=== PATIENT | female | born 1940 | race Caucasian/White ===

== ENCOUNTER 2018-08-21 12:25 | Inpatient (IN) | payer MEDICARE, BC ==
[2018-08-21] MEDS ORDERED: SODIUM CHLORIDE 0.9% 1,000 ML IV STA (13:00)
--- NOTE | 2018-08-21 13:55 | XR ---
EXAMINATION TYPE: XR chest 2V, XR KUB DATE OF EXAM: 08/21/2018 COMPARISON: None HISTORY: 78 year-old female abdominal pain and constipation FINDINGS: Chest: Median sternotomy wires are present with post-CABG clips. Heart mildly enlarged. Diffuse interstitial and peripheral bronchial densities. No consolidation or pleural effusion. ABDOMEN: No evidence for free intraperitoneal air. Cholecystectomy clips. Scattered colonic and small bowel gas. Scattered air-fluid levels are present. Some small bowel loops in the left upper quadrant are more likely mildly dilated at 3.1 cm. Moderate stool burden. Some air -fluid levels appear to be in the colon. Right hip arthroplasty partially visualized. IMPRESSION: 1. Chest: Cardiomegaly. Diffuse interstitial changes of unknown chronicity, possible bronchitis/asthm a or some underlying interstitial fibrosis. Correlate for any acute respiratory signs/symptoms 2. Abdomen: No evidence for free air. Scattered air-fluid levels are present. Some of these air flui d levels are present in the colon. A small bowel loop in the left upper quadrant is borderline to mil dly dilated at 3.1 cm. Findings are nonspecific, favoring enteritis or ileus. Follow-up can exclude e hong small bowel obstruction.
[2018-08-21 14:05] LABS: Basophils % (A) 1 %; Eosinophils # (A) 0.2 k/uL (0-0.7); Eosinophils % (A) 3 %; HCT 34.5 % (34.0-46.0); HGB 11.3 gm/dL (11.4-16.0); Lymphocytes # (A) 0.7 k/uL (1.0-4.8); Lymphocytes % (A) 12 %; MCH 30.7 pg (25.0-35.0); MCHC 32.9 g/dL (31.0-37.0); MCV 93.4 fL (80.0-100.0); Monocytes # (A) 0.5 k/uL (0-1.0); Monocytes % (A) 8 %; Neutrophils # (A) 4.3 k/uL (1.3-7.7); Neutrophils % (A) 74 %; Platelet Count 183 k/uL (150-450); RBC 3.69 m/uL (3.80-5.40); RDW 14.8 % (11.5-15.5); WBC 5.8 k/uL (3.8-10.6)
[2018-08-21 14:14] LABS: Albumin 4.3 g/dL (3.5-5.0); Calcium 9.6 mg/dL (8.4-10.2); Total Bilirubin 1.5 mg/dL (0.2-1.3); Total Protein 7.7 g/dL (6.3-8.2)
--- NOTE | 2018-08-21 14:18 | ED ---
General Adult HPI <Kali Casillas - Last Filed: 08/21/18 17:37> - General Source: patient, RN notes reviewed, old records reviewed Mode of arrival: ambulatory Limitations: no limitations <Salomon Ford - Last Filed: 08/22/18 00:49> - General Chief complaint: Abdominal Pain Stated complaint: Poss bowel obstruction Time Seen by Provider: 08/21/18 12:45 - History of Present Illness Initial comments: 78-year-old female patient past medical history of CHF, aortic valve replacement , atrial fibrillation, anticoagulated on eliquis presents to ED after not having a bowel movement for 6 days. Patient states that she has been taking Tylenol 3 for back pain which she is managing with her primary care provider. Patient states that she has had difficulties with pain medications and constipation in the past. Patient states that her abdomen feels distended, but denies oswaldo pain. Patient has been a small amount of flatus. Patient denies other complaints. Patient denies shortness of breath, chest pain, nausea vomiting diarrhea, fevers or chills. Systemic: Pt denies fatigue, myalgia, fever/chills, rash. Pt denies weakness, night sweats, weight loss. Neuro: Pt denies headache, visual disturbances, syncope or pre-syncope. HEENT: Pt denies ocular discharge or irritation, otalgia, rhinorrhea, pharyngitis or notable lymphadenopathy. Cardiopulmonary: Pt denies chest pain, SOB, heart palpitations, dyspnea on exertion. Abdominal/GI: Pt denies n/v/d. : Pt denies dysuria, burning w/ urination, frequency/urgency. Denies new onset urinary or bowel incontinence. MSK: Pt denies myalgia, loss of strength or function in extremities. Neuro: Pt denies new onset weakness, paresthesias. (Salomon Ford) - Related Data Home Medications Medication Instructions Recorded Confirmed Acetaminophen-Codeine 300-30mg 1 - 2 tab PO Q6H PRN 08/21/18 08/21/18 [Tylenol w/codeine #3] Apixaban [Eliquis] 5 mg PO BID 08/21/18 08/21/18 Bumetanide [BUMEX] 2 mg PO BID 08/21/18 08/21/18 Docusate [Colace] 100 mg PO DAILY PRN 08/21/18 08/21/18 Ferrous Sulfate [Feosol] 325 mg PO BID 08/21/18 08/21/18 Losartan Potassium 100 mg PO DAILY 08/21/18 08/21/18 Metolazone [Zaroxolyn] 2.5 mg PO DAILY 08/21/18 08/21/18 Pantoprazole Sodium [Protonix] 40 mg PO DAILY 08/21/18 08/21/18 Polyethylene Glycol 3350 [Miralax] 17 gm PO DAILY 08/21/18 08/21/18 Rosuvastatin [Crestor] 20 mg PO HS 08/21/18 08/21/18 traZODone HCL [Desyrel] 50 mg PO HS PRN 08/21/18 08/21/18 Allergies Allergy/AdvReac Type Severity Reaction Status Date / Time No Known Allergies Allergy Verified 08/21/18 13:34 Review of Systems ROS Other: All systems not noted in ROS Statement are negative. <Kali Casillas - Last Filed: 08/21/18 17:37> ROS Other: All systems not noted in ROS Statement are negative. <Salomon Ford - Last Filed: 08/22/18 00:49> ROS Statement: Those systems with pertinent positive or pertinent negative responses have been documented in the HPI. Past Medical History Past Medical History: Hyperlipidemia, Hypertension, Mitral Valve Prolapse (MVP) Additional Past Medical History / Comment(s): tricuspid valve History of Any Multi-Drug Resistant Organisms: None Reported Past Surgical History: Cholecystectomy, Tubal Ligation Additional Past Surgical History / Comment(s): aortic valve replacement Past Psychological History: No Psychological Hx Reported Smoking Status: Former smoker Past Alcohol Use History: Occasional Past Drug Use History: None Reported <Salomon Ford - Last Filed: 08/22/18 00:49> General Exam <Kali Casillas - Last Filed: 08/21/18 17:37> Limitations: no limitations <Salomon Ford - Last Filed: 08/22/18 00:49> - General Exam Comments Initial Comments: Constitutional: NAD, AOX3, Pt has pleasant affect. HEENT: NC/AT, trachea midline, neck supple, no lymphadenopathy. Posterior pharynx non erythematous, without exudates. External ears appear normal, without discharge. Mucous membranes moist. Eyes PERRLA, EOM intact. There is no scleral icterus. No pallor noted. Cardiopulmonary: RRR, no murmurs, rubs or gallops, no JVD noted. Lungs CTAB in anterior and posterior lafleur. No +2 peripheral edema, non pitting, baseline for patient. Abdominal exam: Abdomen soft and non-distended. Abdomen non-tender to palpation in all 4 quadrants. Bowel sounds active in LLQ. No hepatosplenomegaly. No ecchymosis Neuro: CN II-XII grossly intact. No nuchal rigidity. MSK: No posterior calf tenderness bilaterally, homans sign negative bilaterally. Posterior tibialis and radial pulse +2 bilaterally. Sensation intact in upper and lower extremities. Full active ROM in upper and lower extremities, 5/5 stregnth. (Salomon Ford) Course <Kali Casillas - Last Filed: 08/21/18 17:37> <Salomon Ford - Last Filed: 08/22/18 00:49> Vital Signs 08/21/18 08/21/18 08/21/18 12:36 16:19 19:16 Temperature 98 F Pulse Rate 98 107 H 92 Pulse Rate [ Pulse Oximetery ] Respiratory 18 20 18 Rate Blood Pressure 134/84 134/84 119/83 Blood Pressure [Left Arm Sitting] O2 Sat by Pulse 99 99 97 Oximetry 08/21/18 08/21/18 08/21/18 19:50 20:00 20:08 Temperature 98.2 F 98.2 F 97.2 F L Pulse Rate 67 Pulse Rate [ 73 73 Pulse Oximetery ] Respiratory 18 18 15 Rate Blood Pressure 112/70 Blood Pressure 116/68 116/68 [Left Arm Sitting] O2 Sat by Pulse 95 95 97 Oximetry - Reevaluation(s) Reevaluation #1: 08/21/18 17:37 I did review and agree with all PA findings. This includes all diagnostic interpretations and treatment plan. Case was discussed in detail with Dr. regalado, who will admit covering for Dr. Salvador. Orthopedics, Dr. Hill will be placed on consult. Troponin will be rechecked. (Kali Casillas) Medical Decision Making - Lab Data Result diagrams: 08/21/18 12:53 08/21/18 12:53 <Kali Casillas - Last Filed: 08/21/18 17:37> - Lab Data Result diagrams: 08/21/18 12:53 08/21/18 12:53 - EKG Data -: EKG Interpreted by Me (and dr casillas) <Salomon Ford - Last Filed: 08/22/18 00:49> - Medical Decision Making 78-year-old female patient past medical history of CHF, aortic valve replacement , atrial fibrillation, anticoagulated on eliquis presents to ED after not having a bowel movement for 6 days. Patient states that she has been taking Tylenol 3 for back pain which she is managing with her primary care provider. Patient states that she has had difficulties with pain medications and constipation in the past. Patient states that her abdomen feels distended, but denies oswaldo pain. Patient has been a small amount of flatus. Patient denies other complaints. Patient denies shortness of breath, chest pain, nausea vomiting diarrhea, fevers or chills. Vital signs stable, afebrile. Physical exam didn't display acute pathology. CBC noncompressive. Coagulation studies within normal limits. CMP revealed mildly elevated creatinine. CK-MB within normal limits. Plasma test within normal limits. Troponin mildly elevated at 0.041. Amylase lipase within normal limits. UA negative. EKG not concerning for acute ischemia. Chest x-ray revealed diffuse interstitial changes of unknown chronicity. KUB revealed scattered air fluid levels. A small bowel loop left upper quadrant borderline to mildly dilated. Nonspecific findings. CT abdomen and pelvis without contrast revealed large stool burdens suggestive of constipation. She will compression fracture of L5, may be acute or subacute. Mild superior endplate fracture of T12 age-indeterminate. Other nonacute findings. Patient to be admitted for treatment of constipation, trending troponin. On repeat evaluation, patient still not have any chest pain , denies any shortness of breath. Cardiology, orthopedics consulted. Case discussed in depth with Dr. Casillas. (Salomon Ford) - Lab Data Lab Results 08/21/18 08/21/18 08/21/18 Range/Units 12:53 12:53 12:53 WBC 5.8 (3.8-10.6) k/uL RBC 3.69 L (3.80-5.40) m/uL Hgb 11.3 L (11.4-16.0) gm/dL Hct 34.5 (34.0-46.0) % MCV 93.4 (80.0-100.0) fL MCH 30.7 (25.0-35.0) pg MCHC 32.9 (31.0-37.0) g/dL RDW 14.8 (11.5-15.5) % Plt Count 183 (150-450) k/uL Neutrophils % 74 % Lymphocytes % 12 % Monocytes % 8 % Eosinophils % 3 % Basophils % 1 % Neutrophils # 4.3 (1.3-7.7) k/uL Lymphocytes # 0.7 L (1.0-4.8) k/uL Monocytes # 0.5 (0-1.0) k/uL Eosinophils # 0.2 (0-0.7) k/uL Basophils # 0.0 (0-0.2) k/uL PT (9.0-12.0) sec INR (<1.2) APTT (22.0-30.0) sec Sodium 136 L (137-145) mmol/L Potassium 3.7 (3.5-5.1) mmol/L Chloride 91 L (98-107) mmol/L Carbon Dioxide 32 H (22-30) mmol/L Anion Gap 13 mmol/L BUN 39 H (7-17) mg/dL Creatinine 1.23 H (0.52-1.04) mg/dL Est GFR (CKD-EPI)AfAm 48 (>60 ml/min/1.73 sqM) Est GFR (CKD-EPI)NonAf 42 (>60 ml/min/1.73 sqM) Glucose 107 H (74-99) mg/dL Plasma Lactic Acid Lusi (0.7-2.0) mmol/L Calcium 9.6 (8.4-10.2) mg/dL Phosphorus (2.5-4.5) mg/dL Magnesium (1.6-2.3) mg/dL Total Bilirubin 1.5 H (0.2-1.3) mg/dL AST 32 (14-36) U/L ALT 25 (9-52) U/L Alkaline Phosphatase 98 (38-126) U/L Total Creatine Kinase 54 (30-135) U/L CK-MB (CK-2) 0.6 (0.0-2.4) ng/mL CK-MB (CK-2) Rel Index 1.1 Troponin I 0.041 H* (0.000-0.034) ng/mL Total Protein 7.7 (6.3-8.2) g/dL Albumin 4.3 (3.5-5.0) g/dL Amylase 40 (30-110) U/L Lipase 27 (23-300) U/L Urine Color Urine Appearance (Clear) Urine pH (5.0-8.0) Ur Specific [place] (1.001-1.035) Urine Protein (Negative) Urine Glucose (UA) (Negative) Urine Ketones (Negative) Urine Blood (Negative) Urine Nitrite (Negative) Urine Bilirubin (Negative) Urine Urobilinogen (<2.0) mg/dL Ur Leukocyte Esterase (Negative) 08/21/18 08/21/18 08/21/18 Range/Units 12:53 12:53 12:53 WBC (3.8-10.6) k/uL RBC (3.80-5.40) m/uL Hgb (11.4-16.0) gm/dL Hct (34.0-46.0) % MCV (80.0-100.0) fL MCH (25.0-35.0) pg MCHC (31.0-37.0) g/dL RDW (11.5-15.5) % Plt Count (150-450) k/uL Neutrophils % % Lymphocytes % % Monocytes % % Eosinophils % % Basophils % % Neutrophils # (1.3-7.7) k/uL Lymphocytes # (1.0-4.8) k/uL Monocytes # (0-1.0) k/uL Eosinophils # (0-0.7) k/uL Basophils # (0-0.2) k/uL PT 11.6 (9.0-12.0) sec INR 1.1 (<1.2) APTT 27.8 (22.0-30.0) sec Sodium (137-145) mmol/L Potassium (3.5-5.1) mmol/L Chloride (98-107) mmol/L Carbon Dioxide (22-30) mmol/L Anion Gap mmol/L BUN (7-17) mg/dL Creatinine (0.52-1.04) mg/dL Est GFR (CKD-EPI)AfAm (>60 ml/min/1.73 sqM) Est GFR (CKD-EPI)NonAf (>60 ml/min/1.73 sqM) Glucose (74-99) mg/dL Plasma Lactic Acid Luis (0.7-2.0) mmol/L Calcium (8.4-10.2) mg/dL Phosphorus 4.2 (2.5-4.5) mg/dL Magnesium 2.0 (1.6-2.3) mg/dL Total Bilirubin (0.2-1.3) mg/dL AST (14-36) U/L ALT (9-52) U/L Alkaline Phosphatase (38-126) U/L Total Creatine Kinase (30-135) U/L CK-MB (CK-2) (0.0-2.4) ng/mL CK-MB (CK-2) Rel Index Troponin I (0.000-0.034) ng/mL Total Protein (6.3-8.2) g/dL Albumin (3.5-5.0) g/dL Amylase (30-110) U/L Lipase (23-300) U/L Urine Color Light Yellow Urine Appearance Clear (Clear) Urine pH 7.5 (5.0-8.0) Ur Specific [place] 1.005 (1.001-1.035) Urine Protein Negative (Negative) Urine Glucose (UA) Negative (Negative) Urine Ketones Negative (Negative) Urine Blood Negative (Negative) Urine Nitrite Negative (Negative) Urine Bilirubin Negative (Negative) Urine Urobilinogen <2.0 (<2.0) mg/dL Ur Leukocyte Esterase Negative (Negative) 08/21/18 Range/Units 13:24 WBC (3.8-10.6) k/uL RBC (3.80-5.40) m/uL Hgb (11.4-16.0) gm/dL Hct (34.0-46.0) % MCV (80.0-100.0) fL MCH (25.0-35.0) pg MCHC (31.0-37.0) g/dL RDW (11.5-15.5) % Plt Count (150-450) k/uL Neutrophils % % Lymphocytes % % Monocytes % % Eosinophils % % Basophils % % Neutrophils # (1.3-7.7) k/uL Lymphocytes # (1.0-4.8) k/uL Monocytes # (0-1.0) k/uL Eosinophils # (0-0.7) k/uL Basophils # (0-0.2) k/uL PT (9.0-12.0) sec INR (<1.2) APTT (22.0-30.0) sec Sodium (137-145) mmol/L Potassium (3.5-5.1) mmol/L Chloride (98-107) mmol/L Carbon Dioxide (22-30) mmol/L Anion Gap mmol/L BUN (7-17) mg/dL Creatinine (0.52-1.04) mg/dL Est GFR (CKD-EPI)AfAm (>60 ml/min/1.73 sqM) Est GFR (CKD-EPI)NonAf (>60 ml/min/1.73 sqM) Glucose (74-99) mg/dL Plasma Lactic Acid Luis 1.5 (0.7-2.0) mmol/L Calcium (8.4-10.2) mg/dL Phosphorus (2.5-4.5) mg/dL Magnesium (1.6-2.3) mg/dL Total Bilirubin (0.2-1.3) mg/dL AST (14-36) U/L ALT (9-52) U/L Alkaline Phosphatase (38-126) U/L Total Creatine Kinase (30-135) U/L CK-MB (CK-2) (0.0-2.4) ng/mL CK-MB (CK-2) Rel Index Troponin I (0.000-0.034) ng/mL Total Protein (6.3-8.2) g/dL Albumin (3.5-5.0) g/dL Amylase (30-110) U/L Lipase (23-300) U/L Urine Color Urine Appearance (Clear) Urine pH (5.0-8.0) Ur Specific [place] (1.001-1.035) Urine Protein (Negative) Urine Glucose (UA) (Negative) Urine Ketones (Negative) Urine Blood (Negative) Urine Nitrite (Negative) Urine Bilirubin (Negative) Urine Urobilinogen (<2.0) mg/dL Ur Leukocyte Esterase (Negative) - EKG Data EKG Comments: atrial fibrillation with PVC or aberrantly conducted complexes. Right bundle- branch block. Left anterior fascicular block. Ventricular rate 100. QRS 146. QT/QTC 358/461. No significant change from prior EKG in 2018. (Salomon Ford) Disposition <Kali Casillas - Last Filed: 08/21/18 17:37> Is patient prescribed a controlled substance at d/c from ED?: No <Salomon Ford - Last Filed: 08/22/18 00:49> Clinical Impression: Constipation Disposition: ADMITTED IP TO THIS HOSP Condition: Serious
[2018-08-21 14:19] LABS: INR 1.1 (<1.2); Partial Thromboplastin Time 27.8 sec (22.0-30.0); Potassium 3.7 mmol/L (3.5-5.1); Prothrombin Time 11.6 sec (9.0-12.0)
[2018-08-21 14:23] LABS: Appearance,Urine Clear (Clear); Bilirubin,Urine Negative (Negative); Blood,Urine Negative (Negative); Color,Urine Light Yellow; Glucose,Urine (UA) Negative (Negative); Ketones,Urine Negative (Negative); Leukocyte Esterase,Urine Negative (Negative); Nitrite,Urine Negative (Negative); PH, Urine 7.5 (5.0-8.0); Protein,Urine Negative (Negative); Specific Gravity,Urine 1.005 (1.001-1.035); Urobilinogen,Urine <2.0 mg/dL (<2.0)
[2018-08-21] MEDS ORDERED: SODIUM CHLORIDE 0.9% 500 ML 500 ML IV STA (14:46)
[2018-08-21] MEDS ORDERED: ACETAMINOPHEN TAB 325 MG TAB PO STA (15:02)
[2018-08-21 15:03] LABS: Phosphorus 4.2 mg/dL (2.5-4.5)
[2018-08-21 15:37] LABS: Creatine Kinase MB 0.6 ng/mL (0.0-2.4)
[2018-08-21 15:46] LABS: Troponin I 0.041 ng/mL (0.000-0.034)
--- NOTE | 2018-08-21 16:42 | CT ---
EXAMINATION TYPE: CT abdomen pelvis wo con DATE OF EXAM: 08/21/2018 COMPARISON: None HISTORY: 78-year-old female with abdominal and back pain with constipation. CT DLP: 794.2 mGycm. Automated exposure control for dose reduction was used. TECHNIQUE: Contiguous axial scanning of the abdomen and pelvis without IV contrast. Coronal and sagit puja reconstructions performed. FINDINGS: Heart mildly enlarged. Dense mitral annular calcifications. Median sternotomy wires. Mosaic attenuati on in the visualized lower lungs. No pleural effusion. Small hiatal hernia. Noncontrast appearance of the liver, adrenal glands, left kidney, spleen, atrophic pancreas show no g ross abnormality. Right kidney is not rotated with a nonspecific 9 mm hypodense lesion posterior upper pole inadequatel y characterized, probable cyst. Moderate atrophy and scattered calcifications throughout the abdominal aorta and iliac arteries with fusiform dilatation up to 2.3 cm. No oswaldo aneurysm. No dilated small bowel, free fluid, or free air. No mesenteric or retroperitoneal lymphadenopathy. However, there is a circumscribed 1.3 cm nodule along the left side of the omentum, axial image 41 an d sagittal image 95. Intrarenal calcifications. A similar 1.4 cm lesion is present in the left posterior pelvis, axial image 68 and sagittal image 3. Suspect some type of chronic postinflammatory etiology but follow-up can be performed. There is fairly large stool burden. Sigmoid diverticulosis. No pericolonic inflammatory change. Edda l appendix. Bladder shows a focus of intraluminal air nondependently. Prominent artifacts from the patient's righ t hip total arthroplasty limits visualization of the pelvis. No definite pelvic free fluid. Uterus an d ovaries are visualized. No definite pelvic lymphadenopathy. Bones: Right hip total arthroplasty. Degenerative changes of the left hip. There is vertebral alberto anabel collapse of the L5 vertebral body. Some sclerotic changes are present. Retropulsion contributes to at least moderate narrowing of the spinal canal. There is also moderate neuroforaminal stenosis on the right at L4-L5 and L5-S1 and severe on the left. Superior endplate fracture of T12 is age-indeterminate. Anterior wedging of L1 has a chronic appearan ce. IMPRESSION: 1. Large stool burden suggest constipation. Sigmoid diverticulosis. No evidence for acute diverticul itis. 2. Moderate to severe vertebral compression fracture of L5 may be acute to subacute. Retropulsion ca uses at least moderate spinal canal stenosis with moderate to severe neural foraminal stenoses on the left at L4-L5 and L5-S1. Findings may represent an osteoporotic compression fracture. Consider nucle ar medicine whole body bone scan to survey the remainder of the skeleton which may help exclude the p ossibility of a pathologic fracture. 3. Mild superior endplate fracture of T12 age indeterminate, but also could be acute to subacute. Cl inically correlate. No retropulsion at this level. Some accentuation of the spinal kyphosis here. 4. Additional superior endplate fracture with anterior wedging of L1 has a chronic appearance. 5. A couple circumscribed nodules, one in the posterior left pelvis and one along the anterior left omentum measure up to 1.4 cm and have a nonaggressive appearance. A chronic post inflammatory etiolog y is suspected and can be reassessed at 3 months. 6. Focus of air in the bladder. Correlate for any instrumentation or signs of UTI. 7. Mosaic attenuation of the visualized lower lungs suggests air trapping suggests with small airway s disease.
[2018-08-21] MEDS ORDERED: HYDROcodone/APAP 5-325MG 1 EACH TAB PO STA (16:56)
[2018-08-21] MEDS ORDERED: IBUPROFEN 400 MG TAB PO PRN (17:33)
[2018-08-21] MEDS ORDERED: NALOXONE 0.4 MG/ML 1 ML VIAL IV PRN (17:33)
[2018-08-21] MEDS ORDERED: KETOROLAC 30 MG/ML 1 ML VIAL IVP STA (17:47)
[2018-08-21] MEDS: SODIUM CHLORIDE 0.9% 1,000 ML IV SCH (18:05)
[2018-08-21] MEDS ORDERED: traZODone HCL 50 MG TAB PO PRN (20:41)
[2018-08-21] MEDS: FERROUS SULFATE 325 MG TAB PO SCH (21:06)
[2018-08-21] MEDS: BUMETANIDE 1 MG TAB PO SCH (21:06)
[2018-08-21] MEDS: ATORVASTATIN 40 MG TAB PO SCH (21:30)
[2018-08-21] MEDS: APIXABAN 5 MG TAB PO SCH (21:30)
[2018-08-21 22:08] VITALS: BMI 34.4
[2018-08-22] MEDS ORDERED: DOCUSATE 283 MG/5 ML ENEMA RECTAL STA
[2018-08-22] MEDS: MORPHINE SULFATE 4 MG/ML SYRINGE IV PRN ×4 (00:50→20:36)
[2018-08-22] MEDS: FERROUS SULFATE 325 MG TAB PO SCH ×2 (06:05→16:01)
[2018-08-22] MEDS: POLYETHYLENE GLYCOL 3350 17 GM POWD.PACK PO SCH (08:15)
[2018-08-22] MEDS: PANTOPRAZOLE 40 MG TABLET PO SCH (08:15)
[2018-08-22] MEDS: LOSARTAN 50 MG TAB PO SCH (08:15)
[2018-08-22] MEDS: APIXABAN 5 MG TAB PO SCH ×2 (08:15→19:56)
[2018-08-22] MEDS: BUMETANIDE 1 MG TAB PO SCH ×2 (08:15→19:51)
[2018-08-22] MEDS: METOLAZONE 2.5 MG TAB PO SCH (08:28)
--- NOTE | 2018-08-22 09:06 | P.CRDCN ---
History of Present Illness Consult date: 08/22/18 Chief complaint: Constipation History of present illness: after this is a pleasant 78-year-old female patient who was followed with a harpooner out of the town with a past medical history significant for coronary artery disease and status post coronary artery bypass grafting, aortic valve replacement was performed at the same time of the bypass, chronic persistent atrial fibrillation, as well as multiple comorbid conditions, was admitted to the hospital because of constipation. The patient does follow with a harpooner out of the town and details on her own cardiac history are unavailable at this point. The patient presented mainly to the emergency room the cause of constipation. She did not have any bowel movement for the last 8 days. She denies having any abdominal pain but she has been experiencing back pain. She stated that her abdomen was distended. No fever and no chills. No symptoms of chest pain or chest discomfort, no shortness of breath above the baseline, and no feeling of heart racing or fluttering, dizziness or lightheadedness, or syncope. The EKG showed sinus rhythm with atrial fibrillation with nonspecific changes. The cardiac enzymes were checked and came in to be slightly abnormal but above 1 and they are flat across support. The cardiac enzymes does not consist with acute myocardial injury. The chest x-ray do not show any acute finding. The creatinine came in to be slightly abnormal which could be responsible about the abnormalities in the cardiac enzymes. The patient did undergo a computed tomography scan of the abdomen and pelvis and now she is in process of getting workup regarding the constipation. Past Medical History Past Medical History: Hyperlipidemia, Hypertension, Mitral Valve Prolapse (MVP) Additional Past Medical History / Comment(s): tricuspid valve History of Any Multi-Drug Resistant Organisms: None Reported Past Surgical History: Cholecystectomy, Tubal Ligation Additional Past Surgical History / Comment(s): aortic valve replacement Past Anesthesia/Blood Transfusion Reactions: No Reported Reaction Past Psychological History: No Psychological Hx Reported Smoking Status: Former smoker Past Alcohol Use History: Occasional Past Drug Use History: None Reported Medications and Allergies Home Medications Medication Instructions Recorded Confirmed Type Acetaminophen-Codeine 300-30mg 1 - 2 tab PO Q6H PRN 08/21/18 08/21/18 History [Tylenol w/codeine #3] Apixaban [Eliquis] 5 mg PO BID 08/21/18 08/21/18 History Bumetanide [BUMEX] 2 mg PO BID 08/21/18 08/21/18 History Docusate [Colace] 100 mg PO DAILY PRN 08/21/18 08/21/18 History Ferrous Sulfate [Feosol] 325 mg PO BID 08/21/18 08/21/18 History Losartan Potassium 100 mg PO DAILY 08/21/18 08/21/18 History Metolazone [Zaroxolyn] 2.5 mg PO DAILY 08/21/18 08/21/18 History Pantoprazole Sodium [Protonix] 40 mg PO DAILY 08/21/18 08/21/18 History Polyethylene Glycol 3350 [Miralax] 17 gm PO DAILY 08/21/18 08/21/18 History Rosuvastatin [Crestor] 20 mg PO HS 08/21/18 08/21/18 History traZODone HCL [Desyrel] 50 mg PO HS PRN 08/21/18 08/21/18 History Allergies Allergy/AdvReac Type Severity Reaction Status Date / Time No Known Allergies Allergy Verified 08/21/18 13:34 Physical Exam Vitals: Vital Signs Temp Pulse Pulse Resp BP BP Pulse Ox 08/22/18 08:00 97.7 F 90 18 109/68 98 08/22/18 04:00 98.5 F 79 19 121/77 95 08/22/18 00:00 98 F 82 18 124/75 97 08/21/18 20:08 97.2 F L 67 15 112/70 97 08/21/18 20:00 98.2 F 73 18 116/68 95 08/21/18 19:50 98.2 F 73 18 116/68 95 08/21/18 19:16 92 18 119/83 97 08/21/18 16:19 107 H 20 134/84 99 08/21/18 12:36 98 F 98 18 134/84 99 Intake and Output 08/21/18 08/22/18 08/22/18 22:59 06:59 14:59 Other: # Voids 0 1 Weight 98.1 kg - Respiratory Respiratory: bilateral: CTA - Cardiovascular Rhythm: irregularly irregular Heart sounds: normal: S1, S2 Abnormal Heart Sounds: systolic murmur Results 08/21/18 12:53 08/21/18 12:53 Cardiac Enzymes 08/21/18 08/21/18 08/21/18 Range/Units 12:53 12:53 20:41 AST 32 (14-36) U/L CK-MB (CK-2) 0.6 (0.0-2.4) ng/mL Troponin I 0.041 H* 0.043 H* (0.000-0.034) ng/mL 08/22/18 Range/Units 02:43 AST (14-36) U/L CK-MB (CK-2) (0.0-2.4) ng/mL Troponin I 0.040 H* (0.000-0.034) ng/mL Coagulation 08/21/18 Range/Units 12:53 PT 11.6 (9.0-12.0) sec APTT 27.8 (22.0-30.0) sec CBC 08/21/18 Range/Units 12:53 WBC 5.8 (3.8-10.6) k/uL RBC 3.69 L (3.80-5.40) m/uL Hgb 11.3 L (11.4-16.0) gm/dL Hct 34.5 (34.0-46.0) % Plt Count 183 (150-450) k/uL Comprehensive Metabolic Panel 08/21/18 Range/Units 12:53 Sodium 136 L (137-145) mmol/L Potassium 3.7 (3.5-5.1) mmol/L Chloride 91 L (98-107) mmol/L Carbon Dioxide 32 H (22-30) mmol/L BUN 39 H (7-17) mg/dL Creatinine 1.23 H (0.52-1.04) mg/dL Glucose 107 H (74-99) mg/dL Calcium 9.6 (8.4-10.2) mg/dL AST 32 (14-36) U/L ALT 25 (9-52) U/L Alkaline Phosphatase 98 (38-126) U/L Total Protein 7.7 (6.3-8.2) g/dL Albumin 4.3 (3.5-5.0) g/dL Current Medications Generic Name Dose Route Start Last Admin Trade Name Freq PRN Reason Stop Dose Admin Acetaminophen 650 mg 08/21/18 17:33 Tylenol Tab PO Q6HR PRN Mild Pain or Fever > 100.5 Apixaban 5 mg 08/21/18 21:00 08/22/18 08:15 Eliquis PO 5 mg BID MOHINI Administration Atorvastatin Calcium 40 mg 08/21/18 21:00 08/21/18 21:30 Lipitor PO 40 mg HS MOHINI Administration Bumetanide 2 mg 08/21/18 21:00 08/22/18 08:15 Bumex PO 2 mg BID MOHINI Administration Ferrous Sulfate 325 mg 08/21/18 21:00 08/22/18 06:05 Feosol PO Not Given BID-W/MEALS MOHINI Sodium Chloride 1,000 mls @ 20 mls/hr 08/21/18 17:45 08/21/18 18:05 Saline 0.9% IV 20 mls/hr .Q24H MOHINI Administration Ibuprofen 400 mg 08/21/18 17:33 Motrin PO Q6HR PRN Mild Pain or Fever > 100.5 Losartan Potassium 100 mg 08/22/18 09:00 08/22/18 08:15 Cozaar PO 100 mg DAILY MOHINI Administration Metolazone 2.5 mg 08/22/18 09:00 08/22/18 08:28 Zaroxolyn PO 2.5 mg DAILY MOHINI Administration Morphine Sulfate 4 mg 08/21/18 17:33 08/22/18 08:15 Morphine Sulfate (Inj) IV 4 mg Q6HR PRN Administration Severe Pain Naloxone HCl 0.2 mg 08/21/18 17:33 Narcan IV Q2M PRN Opioid Reversal Pantoprazole Sodium 40 mg 08/22/18 09:00 08/22/18 08:15 Protonix PO 40 mg DAILY MOHINI Administration Polyethylene Glycol 17 gm 08/22/18 09:00 08/22/18 08:15 Miralax PO 17 gm DAILY MOHINI Administration Trazodone HCl 50 mg 08/21/18 20:41 Desyrel PO HS PRN Insomnia Intake and Output 08/21/18 08/22/18 08/22/18 22:59 06:59 14:59 Other: # Voids 0 1 Weight 98.1 kg 08/21/18 12:53 08/21/18 12:53 Assessment and Plan Assessment: Assessment #1 severe constipation. The etiology is unknown at this point. The patient is in process of getting workup #2 coronary artery disease and status post coronary artery bypass grafting. The details are unavailable #3 valvular heart disease and status post aortic valve replacement. The details are unavailable as well. #4 chronic persistent atrial fibrillation on oral anticoagulation. The atrial fibrillation is under good control #5 multiple comorbid conditions Plan #1 the mildly abnormal cardiac enzymes are likely related to the chronic renal failure. #2 in the absence of chest pain or discomfort and ischemic ST changes, I would recommend only conservative medical approach #3 the atrial fibrillation seems to be under good control on the current medical regimen #4 we'll obtain an echo to assess the aortic and mitral valve. The patient does have quite significant systolic and diastolic murmur #5 follow-up with the patient Thank you for allowing us participate in her care and we'll continue following up with the patient
--- NOTE | 2018-08-22 09:42 | P.CNOR ---
History of Present Illness - HPI Consult date: 08/22/18 Consult reason: low back pain History of present illness: Patient is seen and examined at bedside. She is a pleasant 78-year-old female who has been having pain in her back since approximately a month ago. She says she had a fall in March was not really having pain at her back then. Last year she had a hip replacement that and had a fall shortly after but did not have any pain at her lower back until a couple months after that fall. She says she started having pain in June which worsened to the course of the month. She denies any prior problems with her back in the past. Denies any prior injury in her back in the past. She denies any numbness tingling or weakness in her lower extremity is. She denies any changes in her lower extremities. She started doing physical therapy and taking pain medications for her back but says this is not helping her. She has had significant constipation with the medications and says that she has not had a bowel movement the past week. Review of Systems As stated in HPI. Denies any changes in bladder control. She has been constipated for appropriate. She denies any changes in her lower extremity. Denies any weakness numbness tingling lower extremity. Denies any prior back pain. She had a fall back in March but does not recall any prior injury or problems their back. Past Medical History Past Medical History: Hyperlipidemia, Hypertension, Mitral Valve Prolapse (MVP) Additional Past Medical History / Comment(s): tricuspid valve History of Any Multi-Drug Resistant Organisms: None Reported Past Surgical History: Cholecystectomy, Tubal Ligation Additional Past Surgical History / Comment(s): aortic valve replacement Past Anesthesia/Blood Transfusion Reactions: No Reported Reaction Past Psychological History: No Psychological Hx Reported Smoking Status: Former smoker Past Alcohol Use History: Occasional Past Drug Use History: None Reported Medications and Allergies Home Medications Medication Instructions Recorded Confirmed Type Acetaminophen-Codeine 300-30mg 1 - 2 tab PO Q6H PRN 08/21/18 08/21/18 History [Tylenol w/codeine #3] Apixaban [Eliquis] 5 mg PO BID 08/21/18 08/21/18 History Bumetanide [BUMEX] 2 mg PO BID 08/21/18 08/21/18 History Docusate [Colace] 100 mg PO DAILY PRN 08/21/18 08/21/18 History Ferrous Sulfate [Feosol] 325 mg PO BID 08/21/18 08/21/18 History Losartan Potassium 100 mg PO DAILY 08/21/18 08/21/18 History Metolazone [Zaroxolyn] 2.5 mg PO DAILY 08/21/18 08/21/18 History Pantoprazole Sodium [Protonix] 40 mg PO DAILY 08/21/18 08/21/18 History Polyethylene Glycol 3350 [Miralax] 17 gm PO DAILY 08/21/18 08/21/18 History Rosuvastatin [Crestor] 20 mg PO HS 08/21/18 08/21/18 History traZODone HCL [Desyrel] 50 mg PO HS PRN 08/21/18 08/21/18 History Gabapentin [Neurontin] 100 mg PO BID #28 cap 08/22/18 Rx Allergies Allergy/AdvReac Type Severity Reaction Status Date / Time No Known Allergies Allergy Verified 08/21/18 13:34 Physical Examination Osteopathic Statement: *. No significant issues noted on an osteopathic structural exam other than those noted in the History and Physical/Consult. - L Spine: dermatomal strength & reflexes bilateral Strength: hip flexion: 5/5 (At her lower back she has some skin changes due to use of a heating pad. There is no open wounds lacerations or abrasions. She is nontender to palpation of the midline. She has some mild paravertebral spasm. She is nontender to percussion. There is no crepitus. Lower extremity is have 5 out of 5 strength the dorsal flexion plantarflexion and EHL. She is able to walk on her toes and heels adequately. She is amatory around the room without any assistance.) Results - Labs Labs: Abnormal Lab Results - Last 24 Hours (Table) 08/21/18 08/21/18 08/21/18 Range/Units 12:53 12:53 12:53 RBC 3.69 L (3.80-5.40) m/uL Hgb 11.3 L (11.4-16.0) gm/dL Lymphocytes # 0.7 L (1.0-4.8) k/uL Sodium 136 L (137-145) mmol/L Chloride 91 L (98-107) mmol/L Carbon Dioxide 32 H (22-30) mmol/L BUN 39 H (7-17) mg/dL Creatinine 1.23 H (0.52-1.04) mg/dL Glucose 107 H (74-99) mg/dL Total Bilirubin 1.5 H (0.2-1.3) mg/dL Troponin I 0.041 H* (0.000-0.034) ng/mL 08/21/18 08/22/18 Range/Units 20:41 02:43 RBC (3.80-5.40) m/uL Hgb (11.4-16.0) gm/dL Lymphocytes # (1.0-4.8) k/uL Sodium (137-145) mmol/L Chloride (98-107) mmol/L Carbon Dioxide (22-30) mmol/L BUN (7-17) mg/dL Creatinine (0.52-1.04) mg/dL Glucose (74-99) mg/dL Total Bilirubin (0.2-1.3) mg/dL Troponin I 0.043 H* 0.040 H* (0.000-0.034) ng/mL H & H 08/21/18 Range/Units 12:53 Hgb 11.3 L (11.4-16.0) gm/dL Hct 34.5 (34.0-46.0) % Coagulation 08/21/18 Range/Units 12:53 INR 1.1 (<1.2) Result Diagrams: 08/21/18 12:53 08/21/18 12:53 - Diagnostic results CT Scan - lumbar: report reviewed (The patient had a computed tomography scan of her chest abdomen and pelvis which I was able to review in regards to her spine. She does have evidence of compression deformity at T12-L1 and L5. The fractures at T12 and L1 appear to be chronic. Fracture at L5 his subacute to chronic. There is some bony retropulsion at L5 and there is evidence of bulging and stenosis L4 5.), image reviewed Assessment and Plan Assessment: Low back pain, subacute over the past month L5 compression fracture likely subacute L4 5 disc degeneration with stenosis T12 and L1 compression fractures likely chronic Constipation No neurologic loss and lower extremity's Plan: Low back pain, subacute over the past month L5 compression fracture likely subacute L4 5 disc degeneration with stenosis T12 and L1 compression fractures likely chronic Constipation No neurologic loss and lower extremity's In regards the patient's lower back she has been having pain and seems to have a subacute compression fracture. She is able to be mobile around the room and she is not having neurologic deficit. I do not think she needs acute surgical intervention. She may have some benefit with LSO bracing to give her some support when she is up out of bed. She did not need to use the brace while she is in bed and may remove the brace during bathing. From an orthopedic spine standpoint is okay for the patient to be discharged when she is stable medically. We can follow her up as an outpatient. She may require further imaging such as MRI to full her evaluation of her structure and if she is not having improvement she will speak candidate for kyphoplasty. For the time being we will continue with conservative management. She is wondering about other medications to be taking that will not cause constipation for her. She could have some benefit with calcitonin nasal spray to help with the fracture pain and she may have some benefit with Neurontin as well. We discussed this and we will go ahead and prescribe this for her.
--- NOTE | 2018-08-22 11:33 | ECHOF ---
Referral Reason:Valvular heart disease MEASUREMENTS -------- HEIGHT: 167.6 cm WEIGHT: 98.0 kg BP: RVIDd: 3.2 cm (< 3.3) IVSd: 1.6 cm (0.6 - 1.1) LVIDd: 3.2 cm (3.9 - 5.3) LVPWd: 1.9 cm (0.6 - 1.1) IVSs: 2.1 cm LVIDs: 1.5 cm LVPWs: 2.0 cm LAESV Index (A-L): 70.75 ml/m Ao Diam: 2.0 cm (2.0 - 3.7) AV Cusp: 1.3 cm (1.5 - 2.6) LA Diam: 5.3 cm (2.7 - 3.8) MV EXCURSION: 13.536 mm (> 18.000) MV EF SLOPE: 33 mm/s (70 - 150) EPSS: 0.6 cm AV maxP.27 mmHg AV meanP.59 mmHg RAP: 15.00 mmHg RVSP: 58.95 mmHg FINDINGS -------- Atrial fibrillation. This was a technically good study. The left ventricular size is normal. There is severe concentric left ventricular hypertrophy. Ove rall left ventricular systolic function is normal with, an EF between 55 - 60 %. The right ventricle is normal in size. LA is severely dilated >40 ml/m2 RA appears enlarged. The aortic valve is trileaflet and appears structurally normal. Peak/mean gradient across the Aorti c Valve is 37.27mmHg / 22.59mmHg. There is mild stenosis of the bioprosthetic aortic valve. The mitral valve leaflets are moderately thickened. Moderate mitral annular calcification present. Severe mitral regurgitation is present. Moderate mitral stenosis. The peak and mean MV gradien ts are 25.95mmHg 10.59mmHg as measured by doppler. Severe tricuspid regurgitation present. There is moderate to severe pulmonary hypertension. The r ight ventricular systolic pressure, as measured by Doppler, is 58.95mmHg. Pulmonic valve appears structurally normal. The aortic root size is normal. The inferior vena cava is moderately dilated. The pericardium is normal. CONCLUSIONS -------- 1. Atrial fibrillation. 2. This was a technically good study. 3. The left ventricular size is normal. 4. There is severe concentric left ventricular hypertrophy. 5. Overall left ventricular systolic function is normal with, an EF between 55 - 60 %. 6. The right ventricle is normal in size. 7. LA is severely dilated >40 ml/m2 8. RA appears enlarged. 9. The aortic valve is trileaflet and appears structurally normal. 10. Peak/mean gradient across the Aortic Valve is 37.27mmHg / 22.59mmHg. 11. The mitral valve leaflets are moderately thickened. 12. Moderate mitral annular calcification present. 13. Severe mitral regurgitation is present. 14. The peak and mean MV gradients are 25.95mmHg 10.59mmHg as measured by doppler. 15. Moderate mitral stenosis. 16. Severe tricuspid regurgitation present. 17. There is moderate to severe pulmonary hypertension. 18. The right ventricular systolic pressure, as measured by Doppler, is 58.95mmHg. 19. Pulmonic valve appears structurally normal. 20. The aortic root size is normal. 21. The inferior vena cava is moderately dilated. 22. The pericardium is normal. [employer]: Imelda Ling RDCS
[2018-08-22] MEDS: ACETAMINOPHEN TAB 325 MG TAB PO PRN (11:58)
--- NOTE | 2018-08-22 18:40 | P.HPIM ---
History of Present Illness H&P Date: 08/22/18 Chief Complaint: Back pain History of present complaint: This is a very pleasant 6-year-old patient of . Chronic stable medical conditions include hypertension, hyperlipidemia, mitral valve prolapse. Patient been having lower back pain for some time. She saw Dr. Salvador. She was prescribed Tylenol 3. We she's been taking. Normally bowel pattern had been regular. Patient noticed that she had become constipated for about a week. Abdomen distended. No nausea vomiting. Back pain is bothering her more. Decided to come to the ER. X-ray workup of the abdomen revealed patient to have vertebral fractures. Patient did have a bowel movement after arriving here. Patient feeling better. No fever or chills. No nausea vomiting. Review of systems: GEN.: Tired EYES: None HEENT: None NECK: None RESPIRATORY: None CARDIOVASCULAR: None GASTROINTESTINAL: As above GENITOURINARY: None MUSCULOSKELETAL: Low back pain] LYMPHATICS: None HEMATOLOGICAL: None PSYCHIATRY: None NEUROLOGICAL: None Past medical history: Hypertension, hyperlipidemia, mitral valve prolapse Social history: Smoke a pack a day for 35 years, stopped 30 years ago. . Alcohol occasionally. Family history: Reviewed, noncontributory to presentation Physical examination: VITAL SIGNS: 98, 98, 18, 134-84, 99% room air GENERAL: [BMI 34.9 Average built, sitting up, and]. EYES: [Pupils equal. Conjunctiva giuliano]l. HEENT: [External appearance of nose and ears normal, oral cavity grossly normal] . NECK: [JVD not raised; masses not palpable]. HEART: [First and second heart sounds are normal; no edema]. LUNGS:[ Respiratory rate normal; clear to auscultation]. ABDOMEN: [Soft, nontender, liver spleen not palpable, no masses palpable]. LYMPHATICS: [No lymph nodes palpable in the axilla and neck]. PSYCH: [Alert and oriented x3; mood and affect giuliano]l. NEUROLOGICAL: [Cranial nerves grossly intact; no facial asymmetry, power and sensation grossly intact]. MUSCULOSKELETAL: Tenderness in the lower lumbar spine, evidence of weight especially in the hands, knees Investigations reviewed in the context of clinical picture KUB-scattered air-fluid levels of present Chest [id number]. Some interstitial changes EKG tracing personally reviewed by me shows right bundle branch block and atrial fibrillation 2-D echo-severe concentric left medical hypertrophy, EF 55-60%, severe mitral regurgitation, severe tricuspid regurgitation, moderate to severe pulmonary hypertension Computed tomography scan abdomen-large stool [place], sigmoid diverticulosis, vertebral compression fracture L5 with some moderate spinal stenosis also fracture at T12 and L1 White count 5.8 hemoglobin 11.3 potassium 3.7 BUN 39 creatinine 1.23 Assessment: -Acute severe constipation from decreased mobility, pain, and ALLERGIES 6 -acute or subacute fracture of T5 L1 and T12 -Right bundle branch block -Persistent atrial fibrillation, chronically anticoagulated -Hypertensive heart disease -Severe mitral and tricuspid regurgitation, nondramatic -Moderate to severe pulmonary hypertension -Sigmoid diverticulosis -Moderate spinal stenosis -Chronic kidney disease stage III probably nephrosclerosis -Troponin leak in the setting of chronic kidney disease. Patient has no cardiac symptoms. Plan: Dr. villarreal from orthopedic spine was consulted. Who ordered a brace. Patient oriented a bowel movement. Patient will be added Metamucil. Advised the patient to increase her activity. Home medications resumed. Patient getting IV fluids. Care was discussed with the patient and at the bedside. Encouraged to be out of bed. - Past Medical History Past Medical History: Hyperlipidemia, Hypertension, Mitral Valve Prolapse (MVP) Additional Past Medical History / Comment(s): tricuspid valve History of Any Multi-Drug Resistant Organisms: None Reported Past Surgical History: Cholecystectomy, Tubal Ligation Additional Past Surgical History / Comment(s): aortic valve replacement Past Anesthesia/Blood Transfusion Reactions: No Reported Reaction Past Psychological History: No Psychological Hx Reported Smoking Status: Former smoker Past Alcohol Use History: Occasional Past Drug Use History: None Reported Medications and Allergies Home Medications Medication Instructions Recorded Confirmed Type Acetaminophen-Codeine 300-30mg 1 - 2 tab PO Q6H PRN 08/21/18 08/21/18 History [Tylenol w/codeine #3] Apixaban [Eliquis] 5 mg PO BID 08/21/18 08/21/18 History Bumetanide [BUMEX] 2 mg PO BID 08/21/18 08/21/18 History Docusate [Colace] 100 mg PO DAILY PRN 08/21/18 08/21/18 History Ferrous Sulfate [Feosol] 325 mg PO BID 08/21/18 08/21/18 History Losartan Potassium 100 mg PO DAILY 08/21/18 08/21/18 History Metolazone [Zaroxolyn] 2.5 mg PO DAILY 08/21/18 08/21/18 History Pantoprazole Sodium [Protonix] 40 mg PO DAILY 08/21/18 08/21/18 History Polyethylene Glycol 3350 [Miralax] 17 gm PO DAILY 08/21/18 08/21/18 History Rosuvastatin [Crestor] 20 mg PO HS 08/21/18 08/21/18 History traZODone HCL [Desyrel] 50 mg PO HS PRN 08/21/18 08/21/18 History Calcitonin Nasal [Fortical 1 spray NASAL DAILY 21 Days #1 ml 08/22/18 Rx (Miacalcin)] Gabapentin [Neurontin] 100 mg PO BID #28 cap 08/22/18 Rx Allergies Allergy/AdvReac Type Severity Reaction Status Date / Time No Known Allergies Allergy Verified 08/21/18 13:34 Physical Exam Vitals: Vital Signs Temp Pulse Pulse Resp BP BP Pulse Ox 08/22/18 16:00 96.4 F L 99 16 130/64 98 08/22/18 15:47 20 08/22/18 12:00 97.9 F 100 20 147/62 97 08/22/18 08:00 97.7 F 90 18 109/68 98 08/22/18 04:00 98.5 F 79 19 121/77 95 08/22/18 00:00 98 F 82 18 124/75 97 08/21/18 20:08 97.2 F L 67 15 112/70 97 08/21/18 20:00 98.2 F 73 18 116/68 95 08/21/18 19:50 98.2 F 73 18 116/68 95 08/21/18 19:16 92 18 119/83 97 Intake and Output 08/22/18 08/22/18 08/22/18 06:59 14:59 22:59 Intake Total 180 Balance 180 Intake: Oral 180 Other: # Voids 1 3 # Bowel Movements 1 1 Weight 98.1 kg Results CBC & Chem 7: 08/21/18 12:53 08/21/18 12:53 Labs: Abnormal Lab Results - Last 24 Hours (Table) 08/21/18 08/22/18 08/22/18 Range/Units 20:41 02:43 08:37 Troponin I 0.043 H* 0.040 H* 0.044 H* (0.000-0.034) ng/mL Thrombosis Risk Factor Assmnt - Choose All That Apply Each Factor Represents 1 point: Obesity (BMI >25), Swollen legs (current) Each Risk Factor Represents 3 Points: Age 75 years or older Other congenital or acquired thrombophilia - If yes, enter type in comment: No Thrombosis Risk Factor Assessment Total Risk Factor Score: 5 Thrombosis Risk Factor Assessment Level: High Risk
[2018-08-22] MEDS: SODIUM CHLORIDE 0.9% 1,000 ML IV SCH (19:18)
[2018-08-22] MEDS: ATORVASTATIN 40 MG TAB PO SCH (19:56)
[2018-08-22] MEDS: GABAPENTIN 100 MG CAP PO SCH (20:36)
[2018-08-23] MEDS: MORPHINE SULFATE 4 MG/ML SYRINGE IV PRN (01:48)
[2018-08-23] MEDS: FERROUS SULFATE 325 MG TAB PO SCH (06:16)
[2018-08-23] MEDS ORDERED: CALCITONIN 200 USP/1 NASAL SPRAY 3.7ML BTL NASAL SCH (09:00)
[2018-08-23] MEDS: GABAPENTIN 100 MG CAP PO SCH (09:17)
[2018-08-23] MEDS: PANTOPRAZOLE 40 MG TABLET PO SCH (09:17)
[2018-08-23] MEDS: BUMETANIDE 1 MG TAB PO SCH (09:17)
[2018-08-23] MEDS: LOSARTAN 50 MG TAB PO SCH (09:17)
[2018-08-23] MEDS: APIXABAN 5 MG TAB PO SCH (09:18)
[2018-08-23] MEDS: POLYETHYLENE GLYCOL 3350 17 GM POWD.PACK PO SCH (09:18)
--- NOTE | 2018-08-23 09:22 | P.PN ---
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 The patient does follow with a inventory control supervisor out of the town and details on her own cardiac history are unavailable at this point. The patient presented mainly to the emergency room the cause of constipation. She did not have any bowel movement for the last 8 days. She denies having any abdominal pain but she has been experiencing back pain. She stated that her abdomen was distended. No fever and no chills. No symptoms of chest pain or chest discomfort, no shortness of breath above the baseline, and no feeling of heart racing or fluttering, dizziness or lightheadedness, or syncope. The EKG showed sinus rhythm with atrial fibrillation with nonspecific changes. The cardiac enzymes were checked and came in to be slightly abnormal but above 1 and they are flat across support. The cardiac enzymes does not consist with acute myocardial injury. The chest x-ray do not show any acute finding. The creatinine came in to be slightly abnormal which could be responsible about the abnormalities in the cardiac enzymes. On follow-up with the patient today, 08/23/2018, she remains asymptomatic from a cardiovascular standpoint of view. She did have a bowel movement yesterday. The echocardiogram revealed normal LV function with severe MR, severe TR, and severe pulmonary hypertension. From the cardiovascular standpoint overview, she possibly can be discharged home. Objective - Vital Signs Vital signs: Vital Signs Temp 98.0 F 08/23/18 04:00 Pulse 86 08/23/18 04:00 Resp 18 08/23/18 04:00 BP 116/68 08/23/18 04:00 Pulse Ox 99 08/23/18 04:00 Intake & Output 08/22/18 08/23/18 08/23/18 18:59 06:59 18:59 Intake Total 180 160 Output Total 0 Balance 180 160 0 Weight 97.7 kg Intake: Intake, IV Titration 160 Amount Sodium Chloride 0.9% 1, 160 000 ml @ 20 mls/hr IV . Q24H [facility] Rx#:[id number] Oral 180 Output: Urine 0 Other: Voiding Method Toilet # Voids 3 1 # Bowel Movements 1 - Constitutional General appearance: Present: no acute distress - Respiratory Respiratory: bilateral: CTA - Cardiovascular Rhythm: irregularly irregular Heart sounds: normal: S1, S2 Abnormal Heart Sounds: Present: systolic murmur - Labs CBC & Chem 7: 08/21/18 12:53 08/21/18 12:53 Labs: Abnormal Lab Results - Last 24 Hours (Table) 08/22/18 Range/Units 08:37 Troponin I 0.044 H* (0.000-0.034) ng/mL Assessment and Plan Assessment: Assessment #1 severe constipation. The etiology is unknown at this point. The patient is in process of getting workup #2 coronary artery disease and status post coronary artery bypass grafting. The details are unavailable #3 valvular heart disease and status post aortic valve replacement. The details are unavailable as well. #4 chronic persistent atrial fibrillation on oral anticoagulation. The atrial fibrillation is under good control #5 multiple comorbid conditions Plan #1 the mildly abnormal cardiac enzymes are likely related to the chronic renal failure. #2 in the absence of chest pain or discomfort and ischemic ST changes, I would recommend only conservative medical approach #3 the atrial fibrillation seems to be under good control on the current medical regimen #4 echocardiogram reviewed and revealed normal LV function with severe MR, severe TR, severe pulmonary hypertension #5 from the cardiac standpoint, she can be discharged home.
[2018-08-23] MEDS: METOLAZONE 2.5 MG TAB PO SCH (09:24)
[2018-08-23] MEDS: ACETAMINOPHEN TAB 325 MG TAB PO PRN ×2 (09:25→14:53)
[2018-08-23 09:36] VITALS: TEMP 97.6
[2018-08-23 12:02] VITALS: BP 127/73; PULSE 102; RESP 17
--- NOTE | 2018-08-24 08:08 | DS ---
DISCHARGE SUMMARY DATE OF ADMISSION: August 21, 2018. DATE OF DISCHARGE: August 23, 2018. FINAL DIAGNOSES: 1. Acute severe constipation from decreased mobility, pain. 2. Acute on subacute fracture of T5, L1 and T12, lumbar vertebra. 3. Right bundle branch block. 4. Persistent atrial fibrillation chronically anticoagulated. 5. Hypertensive heart disease. 6. Severe mitral and tricuspid regurgitation, nonrheumatic. 7. Moderate to severe secondary pulmonary hypertension. 8. Sigmoid diverticulosis asymptomatic. 9. Moderate spinal stenosis. 10.Chronic kidney disease stage 3 probably from nephrosclerosis. 11.Troponin leak in the setting of chronic kidney disease. Patient has no cardiac symptoms. HOSPITAL COURSE: This patient presented with no bowel movement for 1 week. Also has been having lower back pain, coming on for some time. The patient was severely constipated, did start having good bowel movements after she got here. The patient did have abdomen and pelvis CT scan that did show thoracolumbar fracture as above. The patient is seen by Dr. Hill from Orthopedics. No further intervention. Did prescribe the patient Neurontin. The patient also did have a good bowel movements. The patient was given a back brace. Doing much better today, wearing the brace. is present. Questions were answered. PHYSICAL EXAMINATION: VITAL SIGNS: Temperature 97.6, pulse 98, respiratory rate 18, blood pressure 127/73, pulse ox 94 percent on room air. Lungs fair entry. CARDIOVASCULAR: 1st and 2nd sounds normal. Brace in place. INVESTIGATIONS: White count 5.8, hemoglobin 11.3, potassium 3.7, BUN 39, creatinine 1.23. 2D echocardiogram showed EF of 55-60 percent, severe mitral regurgitation, moderate mitral annular calcification, severe tricuspid regurgitation, moderate to severe pulmonary hypertension. DISCHARGE MEDICATIONS: 1. Tylenol 3 1-2 tablets q.6h p.r.n. 2. Eliquis 5 mg b.i.d. 3. Bumex 2 mg p.o. b.i.d. 4. Iron 325 p.o. b.i.d. 5. Losartan 100 mg p.o. daily. 6. Zaroxolyn 2.5 mg p.o. daily. 7. Protonix 40 mg p.o. daily. 8. MiraLAX 17 grams p.o. daily. 9. Crestor 20 mg p.o. q.h.s. 10.Trazodone 50 mg q.h.s. p.r.n. 11.Calcitonin 1 spray nasal cannula over 21 days. 12.Neurontin 100 mg b.i.d. 13.Metamucil 6 grams p.o. b.i.d. FOLLOWUP: With Cardiology in 1 week. Follow up with Dr. Hill on 09/06/2018. Follow up with Shanice Salvador in 3 days. LSO brace to be worn when patient out of bed except for bathing. May take the brace off when in bed or chair with good back support. Copy to Dr. Shanice Salvador. MMODL / IJN: [id number] /
== END 2018-08-23 15:45 | disposition home or self-care (01) | DRG 392 ==
LOC: EC 12:25 → 3SCARD 17:38 → OBSVTOIN 08-23 14:41
PROVIDERS: ADMIT Hospitalist; ATTEND Hospitalist
DX: K59.00 Constipation, unspecified (principal); S22.059A Unspecified fracture of T5-T6 vertebra, initial encounter for closed fracture; I13.0 Hypertensive heart and chronic kidney disease with heart failure and stage 1 through stage 4 chronic kidney disease, or unspecified chronic kidney disease; I48.1 Persistent atrial fibrillation; S22.089A Unspecified fracture of T11-T12 vertebra, initial encounter for closed fracture; E78.5 Hyperlipidemia, unspecified; I08.1 Rheumatic disorders of both mitral and tricuspid valves; I25.10 Atherosclerotic heart disease of native coronary artery without angina pectoris; I27.29 Other secondary pulmonary hypertension; I45.10 Unspecified right bundle-branch block; I48.2 Chronic atrial fibrillation; I50.9 Heart failure, unspecified; K57.30 Diverticulosis of large intestine without perforation or abscess without bleeding; M48.061 Spinal stenosis, lumbar region without neurogenic claudication; M51.36 Other intervertebral disc degeneration, lumbar region; N18.3 Chronic kidney disease, stage 3 (moderate); W19.XXXA Unspecified fall, initial encounter; Z79.01 Long term (current) use of anticoagulants; Z79.899 Other long term (current) drug therapy; Z87.891 Personal history of nicotine dependence; Z91.81 History of falling; Z95.1 Presence of aortocoronary bypass graft; Z95.2 Presence of prosthetic heart valve; Z96.649 Presence of unspecified artificial hip joint; Z79.891 Long term (current) use of opiate analgesic; Z90.49 Acquired absence of other specified parts of digestive tract
CPT/HCPCS: 36415; 71046; 74018; 74176; 80053; 81003; 82150; 82550; 82553; 83605; 83690; 83735; 84100; 84484; 85025; 85610; 85730; 93005; 93306; 96361; 96374; 99285

== ENCOUNTER 2018-09-04 11:50 | Emergency (ER) | payer MEDICARE, BC ==
[2018-09-04 11:58] VITALS: TEMP 97
[2018-09-04] MEDS ORDERED: LIDOCAINE 1%-EPI 1:100,000 20 ML VIAL SQ ONE (12:48)
--- NOTE | 2018-09-04 12:48 | ED ---
General Adult HPI <Theodore Godwin - Last Filed: 09/04/18 14:38> - General Source: EMS, RN notes reviewed Mode of arrival: EMS Limitations: no limitations <Minoo Jonas - Last Filed: 09/04/18 16:25> - General Chief complaint: Extremity Problem,Nontraumatic Stated complaint: ruptured varicose vein Time Seen by Provider: 09/04/18 12:22 - History of Present Illness Initial comments: Patient is an 78-year-old female who arrived by EMS with history of varicose veins status post laser treatment 5 or 6 years ago and A fib who presents the emergency department with complaint of right lower extremity bleeding from the calf area that started about 10:30 AM today while she was in the shower. Denies shaving or injury to the area. She reports taking Eliquis. Her tied a belt around her leg to try to stop the bleeding. Patient is not sure when her last tetanus vaccination was done, but states that it has been a long time. Patient denies any recent fever, chills, shortness of breath, chest pain, back pain, abdominal pain, nausea or vomiting, numbness or tingling, headaches or visual changes, or any other complaints. (Minoo Jonas) - Related Data Home Medications Medication Instructions Recorded Confirmed Apixaban [Eliquis] 5 mg PO BID 08/21/18 09/04/18 Bumetanide [BUMEX] 2 mg PO BID 08/21/18 09/04/18 Losartan Potassium 100 mg PO DAILY 08/21/18 09/04/18 Metolazone [Zaroxolyn] 2.5 mg PO DAILY 08/21/18 09/04/18 Pantoprazole Sodium [Protonix] 40 mg PO DAILY 08/21/18 09/04/18 Polyethylene Glycol 3350 [Miralax] 17 gm PO DAILY 08/21/18 09/04/18 Rosuvastatin [Crestor] 20 mg PO HS 08/21/18 09/04/18 traZODone HCL [Desyrel] 50 mg PO HS PRN 08/21/18 09/04/18 traMADol HCL [Ultram] 50 mg PO Q6HR PRN 09/04/18 09/04/18 Previous Rx's Medication Instructions Recorded Calcitonin Nasal [Fortical 1 spray NASAL DAILY 21 Days #1 ml 08/22/18 (Miacalcin)] Gabapentin [Neurontin] 100 mg PO BID #28 cap 08/22/18 Psyllium Husk 100% [Metamucil 6 gm PO BID #60 packet 08/23/18 Packet] Allergies Allergy/AdvReac Type Severity Reaction Status Date / Time No Known Allergies Allergy Verified 09/04/18 12:20 Review of Systems ROS Other: All systems not noted in ROS Statement are negative. <Theodore Godwin - Last Filed: 09/04/18 14:38> ROS Other: All systems not noted in ROS Statement are negative. <Minoo Jonas - Last Filed: 09/04/18 16:25> ROS Statement: Those systems with pertinent positive or pertinent negative responses have been documented in the HPI. Past Medical History Past Medical History: Hyperlipidemia, Hypertension, Mitral Valve Prolapse (MVP) Additional Past Medical History / Comment(s): tricuspid valve History of Any Multi-Drug Resistant Organisms: None Reported Past Surgical History: Cholecystectomy, Tubal Ligation Additional Past Surgical History / Comment(s): aortic valve replacement Past Anesthesia/Blood Transfusion Reactions: No Reported Reaction Past Psychological History: No Psychological Hx Reported Smoking Status: Former smoker Past Alcohol Use History: Occasional Past Drug Use History: None Reported <Minoo Jonas - Last Filed: 09/04/18 16:25> General Exam Limitations: no limitations General appearance: alert, in no apparent distress Head exam: Present: atraumatic, normocephalic Eye exam: Present: normal appearance Respiratory exam: Present: normal lung sounds bilaterally. Absent: wheezes, rales, rhonchi Cardiovascular Exam: Present: irregular rhythm (Patient has A fib.) Extremities exam: Present: normal capillary refill, other (2 mm hole with venous bleeding. Right DP pulse palpable and strong.) Neurological exam: Present: alert, oriented X3, normal gait <Minoo Jonas - Last Filed: 09/04/18 16:25> Course <Theodore Godwin - Last Filed: 09/04/18 14:38> <Minoo Jonas E - Last Filed: 09/04/18 16:25> Vital Signs 09/04/18 09/04/18 09/04/18 11:57 13:01 14:46 Temperature 97.0 F L Pulse Rate 99 106 H 90 Respiratory 16 18 16 Rate Blood Pressure 108/64 109/87 96/61 O2 Sat by Pulse 94 L 100 98 Oximetry 09/04/18 09/04/18 16:02 16:13 Temperature Pulse Rate 103 H 91 Respiratory 16 18 Rate Blood Pressure 94/53 94/56 O2 Sat by Pulse 97 98 Oximetry - Reevaluation(s) Reevaluation #1: 09/04/18 14:38 PA supervision: I proceeded [id number] evaluation the patient he does demonstrate evidence of a varicose vein that has ruptured with active bleeding. Patient did have a [id number] placed with improvement in the bleeding I did recommend Gelfoam in addition. I do agree with the assessment and plan patient is in agreement with this. (Theodore Godwin) Procedures <Theodore Godwin - Last Filed: 09/04/18 14:38> - Laceration Laceration #1 Consent Obtained: verbal consent Indication: other (Ruptured varicose vein.) Site: lower extremity Description: clean Depth: simple, single layer Sedation/Analgesia: none Anesthetic Used: lidocaine 1%, with epi Anesthesia Technique: local infiltration Amount (mls): 2 Type of Sutures: nylon Size of Sutures: 4-0 Number of Sutures: 2 Technique: other ([id number]) Patient Tolerated Procedure: well, no complications <Minoo Jonas - Last Filed: 09/04/18 16:25> - Laceration Laceration #1 Additional Comments: Bleeding stopped. Patient neurovascularly intact. (Minoo Jonas) Medical Decision Making - Lab Data Result diagrams: 09/04/18 12:22 09/04/18 12:22 <Theodore Godwin - Last Filed: 09/04/18 14:38> - Lab Data Result diagrams: 09/04/18 12:22 09/04/18 12:22 <Minoo Jonas - Last Filed: 09/04/18 16:25> - Medical Decision Making Bleeding stopped with sutures. Gelfoam and dressing applied as well. Patient ambulating to the restroom without difficulty; denies dizziness. I encouraged increased fluid intake. Tdap updated here. Case discussed in detail with attending physician Dr. Godwin. (Minoo Jonas) - Lab Data Lab Results 09/04/18 09/04/18 09/04/18 Range/Units 12:22 12:22 12:22 WBC 5.9 (3.8-10.6) k/uL RBC 3.35 L (3.80-5.40) m/uL Hgb 10.4 L (11.4-16.0) gm/dL Hct 31.7 L (34.0-46.0) % MCV 94.6 (80.0-100.0) fL MCH 31.1 (25.0-35.0) pg MCHC 32.9 (31.0-37.0) g/dL RDW 15.0 (11.5-15.5) % Plt Count 162 (150-450) k/uL Neutrophils % 74 % Lymphocytes % 11 % Monocytes % 9 % Eosinophils % 3 % Basophils % 1 % Neutrophils # 4.3 (1.3-7.7) k/uL Lymphocytes # 0.7 L (1.0-4.8) k/uL Monocytes # 0.5 (0-1.0) k/uL Eosinophils # 0.2 (0-0.7) k/uL Basophils # 0.1 (0-0.2) k/uL PT 11.9 (9.0-12.0) sec INR 1.1 (<1.2) APTT 26.4 (22.0-30.0) sec Sodium 137 (137-145) mmol/L Potassium 4.1 (3.5-5.1) mmol/L Chloride 94 L (98-107) mmol/L Carbon Dioxide 34 H (22-30) mmol/L Anion Gap 9 mmol/L BUN 44 H (7-17) mg/dL Creatinine 1.56 H (0.52-1.04) mg/dL Est GFR (CKD-EPI)AfAm 36 (>60 ml/min/1.73 sqM) Est GFR (CKD-EPI)NonAf 31 (>60 ml/min/1.73 sqM) Glucose 111 H (74-99) mg/dL Calcium 9.4 (8.4-10.2) mg/dL Total Bilirubin 1.1 (0.2-1.3) mg/dL AST 23 (14-36) U/L ALT 24 (9-52) U/L Alkaline Phosphatase 95 (38-126) U/L Total Protein 6.7 (6.3-8.2) g/dL Albumin 3.7 (3.5-5.0) g/dL Disposition <Theodore Godwin - Last Filed: 09/04/18 14:38> Is patient prescribed a controlled substance at d/c from ED?: No <Minoo Jonas - Last Filed: 09/04/18 16:25> Clinical Impression: Ruptured varicose vein Disposition: HOME SELF-CARE Condition: Good Instructions (If sedation given, give patient instructions): Care For Your Stitches (ED) Additional Instructions: Follow-up with your PCP in 1 to 2 days. Return to the emergency department or follow-up with your PCP in 10 days for suture removal. Return to the emergency department if you begin to bleed again. Referrals: Shanice Salvador DO [Primary Care Provider] - 1-2 days
[2018-09-04 13:19] LABS: Basophils # (A) 0.1 k/uL (0-0.2); Basophils % (A) 1 %; Eosinophils # (A) 0.2 k/uL (0-0.7); Eosinophils % (A) 3 %; HCT 31.7 % (34.0-46.0); HGB 10.4 gm/dL (11.4-16.0); Lymphocytes # (A) 0.7 k/uL (1.0-4.8); Lymphocytes % (A) 11 %; MCH 31.1 pg (25.0-35.0); MCHC 32.9 g/dL (31.0-37.0); MCV 94.6 fL (80.0-100.0); Mean Platelet Volume 7.4; Monocytes # (A) 0.5 k/uL (0-1.0); Monocytes % (A) 9 %; Neutrophils # (A) 4.3 k/uL (1.3-7.7); Neutrophils % (A) 74 %; Platelet Count 162 k/uL (150-450); RBC 3.35 m/uL (3.80-5.40); WBC 5.9 k/uL (3.8-10.6)
[2018-09-04 13:28] LABS: INR 1.1 (<1.2); Partial Thromboplastin Time 26.4 sec (22.0-30.0); Prothrombin Time 11.9 sec (9.0-12.0)
[2018-09-04 13:32] LABS: Albumin 3.7 g/dL (3.5-5.0); Calcium 9.4 mg/dL (8.4-10.2); Potassium 4.1 mmol/L (3.5-5.1); Total Bilirubin 1.1 mg/dL (0.2-1.3); Total Protein 6.7 g/dL (6.3-8.2)
[2018-09-04] MEDS ORDERED: GELATIN SPONGE,ABSORB (LARGE) 1 EACH SPONGE TOPICAL STA (14:19)
[2018-09-04] MEDS ORDERED: DIPH,PERTUS(ACELL)TETVAC-LF 0.5 ML VIAL IM ONE (14:21)
[2018-09-04 16:14] VITALS: BP 94/56; PULSE 91; RESP 18
== END 2018-09-04 16:22 | disposition home or self-care (01) ==
LOC: EC 11:50
DX: I83.91 Asymptomatic varicose veins of right lower extremity (principal); Z23 Encounter for immunization; E78.5 Hyperlipidemia, unspecified; I10 Essential (primary) hypertension; I48.91 Unspecified atrial fibrillation; Z79.01 Long term (current) use of anticoagulants; Z79.899 Other long term (current) drug therapy; Z87.891 Personal history of nicotine dependence; Z95.2 Presence of prosthetic heart valve
CPT/HCPCS: 12001; 36415; 80053; 85025; 85610; 85730; 90471; 90715; 99283

== ENCOUNTER 2018-09-16 13:34 | Emergency (ER) | payer MEDICARE, BC ==
[2018-09-16 13:49] VITALS: BP 118/76; PULSE 108; RESP 18; TEMP 98
[2018-09-16] MEDS ORDERED: OXYMETAZOLINE 0.05% NASL SPRAY 1 SPRAY BOTTLE NASAL STA (14:17)
--- NOTE | 2018-09-16 14:51 | ED ---
ENT HPI - General Chief complaint: ENT Stated complaint: bloody nose Time Seen by Provider: 09/16/18 14:04 Source: patient Mode of arrival: ambulatory Limitations: no limitations - History of Present Illness Initial comments: 6-year-old female past medical history of atrial fibrillation on eliquis presented today for chief complaint of recurrent nosebleeds. Patient states that about 4-5 days ago she was seen at [facility] for nosebleed, she states she had a clamp applied and was discharged home. She denies being administered any medications any cauterization or packing. Patient states that yesterday morning she experienced a nosebleed for 20 minutes, she states she applied pressure and the bleeding subsided. She states the bleeding is coming from the left nares. Patient states that today 11 AM she began experiencing nosebleed, she is unable to control the bleed and presented to the emergency department. Upon arrival to emergency department today patient has clamp in place. Patient remaining review of systems negative, patient denies any recent fever, chills, shortness of breath, chest pain, back pain, abdominal pain, nausea or vomiting, numbness or tingling, dysuria or hematuria, constipation or diarrhea, headaches or visual changes, or any other complaints. Upon arrival patient appears well no signs distress. Vital signs reveal elevation of heart rate initally, palpated HR of 88BPM on history taking. - Related Data Home Medications Medication Instructions Recorded Confirmed Apixaban [Eliquis] 5 mg PO BID 08/21/18 09/04/18 Bumetanide [BUMEX] 2 mg PO BID 08/21/18 09/04/18 Losartan Potassium 100 mg PO DAILY 08/21/18 09/04/18 Metolazone [Zaroxolyn] 2.5 mg PO DAILY 08/21/18 09/04/18 Pantoprazole Sodium [Protonix] 40 mg PO DAILY 08/21/18 09/04/18 Polyethylene Glycol 3350 [Miralax] 17 gm PO DAILY 08/21/18 09/04/18 Rosuvastatin [Crestor] 20 mg PO HS 08/21/18 09/04/18 traZODone HCL [Desyrel] 50 mg PO HS PRN 08/21/18 09/04/18 traMADol HCL [Ultram] 50 mg PO Q6HR PRN 09/04/18 09/04/18 Previous Rx's Medication Instructions Recorded Calcitonin Nasal [Fortical 1 spray NASAL DAILY 21 Days #1 ml 08/22/18 (Miacalcin)] Gabapentin [Neurontin] 100 mg PO BID #28 cap 08/22/18 Psyllium Husk 100% [Metamucil 6 gm PO BID #60 packet 08/23/18 Packet] Allergies Allergy/AdvReac Type Severity Reaction Status Date / Time No Known Allergies Allergy Verified 09/16/18 13:49 Review of Systems ROS Statement: Those systems with pertinent positive or pertinent negative responses have been documented in the HPI. ROS Other: All systems not noted in ROS Statement are negative. Past Medical History Past Medical History: Hyperlipidemia, Hypertension, Mitral Valve Prolapse (MVP) Additional Past Medical History / Comment(s): tricuspid valve History of Any Multi-Drug Resistant Organisms: None Reported Past Surgical History: Cholecystectomy, Tubal Ligation Additional Past Surgical History / Comment(s): aortic valve replacement Past Anesthesia/Blood Transfusion Reactions: No Reported Reaction Past Psychological History: No Psychological Hx Reported Smoking Status: Former smoker Past Alcohol Use History: Occasional Past Drug Use History: None Reported General Exam - General Exam Comments Initial Comments: General: The patient is awake and alert, in no distress, and does not appear acutely ill. Eye: Pupils are equal, round and reactive to light, extra-ocular movements are intact. No nystagmus. There is normal conjunctiva bilaterally. No signs of icterus. No pallor of the lids of the eyes. Ears, nose, mouth and throat: There are moist mucous membranes and no oral lesions. Upon inspection of the nares bilaterally there is crusting of blood. Patient had cramp in place, after removal of clamp there was small amount of bleeding., I was unable to identify source at this time after having patient blow nose. Will reassess. Dried blood in oropharnyx, no heavy bleeding noted. Neck: The neck is supple, there is no tenderness or JVD. Cardiovascular: There is a regular rate and irregular rhythm. No murmur, rub or gallop is appreciated. Respiratory: Lungs are clear to auscultation, respirations are non-labored, breath sounds are equal. No wheezes, stridor, rales, or rhonchi. Musculoskeletal: Normal ROM, no tenderness. Strength 5/5. Sensation intact. Pulses equal bilaterally 2+. Neurological: A&O x 3. CN II-XII intact, There are no obvious motor or sensory deficits. Coordination appears grossly intact. Speech is normal. Skin: Skin is warm and dry and no rashes or lesions are noted. Psychiatric: Cooperative, appropriate mood & affect, normal judgment. Limitations: no limitations Course Vital Signs 09/16/18 13:45 Temperature 98 F Pulse Rate 108 H Respiratory 18 Rate Blood Pressure 118/76 O2 Sat by Pulse 99 Oximetry - Reevaluation(s) Reevaluation #1: Pt blew nose, large clot from left nare. Afrin sprayed x2 each nares, although bleeding appeared to be coming from left nares. After blowing no dripping of blood or active bleeding. I tried to identify a source. Pt gargled water there was no evidence of blood in the oropharynx. 09/16/18 Reevaluation #2: Reassessed patient there was no active bleeding after afrin and clamping. No blood in oropharynx. No identified source of anterior left nare bleed for cauterization. Pt given Dr. Martinez phone number, called and had an appointment scheduled for this Sunday, 09/18. 09/16/18 Medical Decision Making - Medical Decision Making Well-appearing 78-year-old female, presenting for nosebleed. Upon initial exam there was small amount of bleeding from left nare. Patient had Afrin applied and clamp. Upon reexamination there is no evidence of bleeding no source identified for cauterization. Reexamined patient 20 minutes later to assure bleeding had subsided, no rebleeding. Oropharynx was evaluated on multiple occasions, there is no evidence of posterior bleeding or dripping down the nasopharynx, no current anterior bleed. At this time I do feel cause of nose bleed was most likely anterior bleed. Patient will be discharged with follow- up with ears nose throat. Patient is agreeable plan discharge, return parameters were discussed at length the patient who verbalized understanding. Patient discharged appearing well, happy will planned with scheduled appointment with Juan 09/18. I did discuss the case with attending provider Dr. Petersen who agreed with impression and plan. Disposition Clinical Impression: Bleeding nose Disposition: HOME SELF-CARE Condition: Good Instructions (If sedation given, give patient instructions): Nosebleed (ED) Additional Instructions: Please use medication as discussed. Please follow-up with family doctor in 2 days, please follow-up with ENT in the next 2-3 days. Please return to emergency room if the symptoms increase or worsen or for any other concerns, as discussed. Is patient prescribed a controlled substance at d/c from ED?: No Referrals: Shanice Salvador DO [Primary Care Provider] - 1-2 days Time of Disposition: 15:40
== END 2018-09-16 15:53 | disposition home or self-care (01) ==
LOC: EC 13:34
DX: R04.0 Epistaxis (principal); E78.5 Hyperlipidemia, unspecified; I10 Essential (primary) hypertension; I34.1 Nonrheumatic mitral (valve) prolapse; I48.91 Unspecified atrial fibrillation; Z95.2 Presence of prosthetic heart valve; Z87.891 Personal history of nicotine dependence; Z79.01 Long term (current) use of anticoagulants; Z79.899 Other long term (current) drug therapy
CPT/HCPCS: 99283

== ENCOUNTER 2018-11-02 08:33 | Emergency (ER) | payer MEDICARE, BC ==
[2018-11-02 08:38] VITALS: RESP 18
[2018-11-02] MEDS ORDERED: DEXAMETHASONE SOD PHOSPHATE 10 MG/ML 1 ML VIAL IM STA (08:49)
[2018-11-02] MEDS ORDERED: MORPHINE SULFATE 4 MG/ML SYRINGE IM STA (08:49)
--- NOTE | 2018-11-02 09:02 | ED ---
Extremity Problem HPI - General Chief complaint: Extremity Problem,Nontraumatic Stated complaint: Lt arm pain Time Seen by Provider: 11/02/18 08:41 Source: patient, RN notes reviewed Mode of arrival: wheelchair Limitations: no limitations - History of Present Illness Initial comments: 78-year-old female presents emergency Department chief complaint of left shoulder pain. Patient states she's had increasing pain as she's been more dependent on her cane because she had a recent back fracture. Patient states that the pain is worse with movement of her left shoulder. She states that it was severe were her tramadol did not help with the pain. Patient denies any chest pain or shortness of breath. Denies any neck pain, neck stiffness, fever, chills, headache or dizziness. - Related Data Home Medications Medication Instructions Recorded Confirmed Apixaban [Eliquis] 5 mg PO BID 08/21/18 11/02/18 Bumetanide [BUMEX] 2 mg PO BID 08/21/18 11/02/18 Losartan Potassium 100 mg PO DAILY 08/21/18 11/02/18 Metolazone [Zaroxolyn] 2.5 mg PO DAILY 08/21/18 11/02/18 Pantoprazole Sodium [Protonix] 40 mg PO DAILY 08/21/18 11/02/18 Rosuvastatin [Crestor] 20 mg PO HS 08/21/18 11/02/18 traMADol HCL [Ultram] 50 mg PO Q6HR PRN 09/04/18 11/02/18 Previous Rx's Medication Instructions Recorded HYDROcodone/APAP 7.5-325MG [[place] 1 tab PO Q6HR PRN 3 Days #12 tab 11/02/18 7.5-325] predniSONE 50 mg PO DAILY #4 tab 11/02/18 Allergies Allergy/AdvReac Type Severity Reaction Status Date / Time No Known Allergies Allergy Verified 11/02/18 08:59 Review of Systems ROS Statement: Those systems with pertinent positive or pertinent negative responses have been documented in the HPI. ROS Other: All systems not noted in ROS Statement are negative. Past Medical History Past Medical History: Hyperlipidemia, Hypertension, Mitral Valve Prolapse (MVP) Additional Past Medical History / Comment(s): tricuspid valve History of Any Multi-Drug Resistant Organisms: None Reported Past Surgical History: Cholecystectomy, Tubal Ligation Additional Past Surgical History / Comment(s): aortic valve replacement Past Anesthesia/Blood Transfusion Reactions: No Reported Reaction Past Psychological History: No Psychological Hx Reported Smoking Status: Former smoker Past Alcohol Use History: Occasional Past Drug Use History: None Reported General Exam Limitations: no limitations General appearance: alert, in no apparent distress Head exam: Present: atraumatic, normocephalic, normal inspection Eye exam: Present: normal appearance, PERRL, EOMI. Absent: scleral icterus, conjunctival injection, periorbital swelling ENT exam: Present: normal exam, mucous membranes moist Neck exam: Present: normal inspection, full ROM. Absent: tenderness, meningismus, lymphadenopathy Respiratory exam: Present: normal lung sounds bilaterally. Absent: respiratory distress, wheezes, rales, rhonchi, stridor Cardiovascular Exam: Present: regular rate, normal rhythm, normal heart sounds. Absent: systolic murmur, diastolic murmur, rubs, gallop, clicks Extremities exam: Present: other (Left shoulder tenderness over the lateral aspect, pain with range of motion neurovascular intact pulses equal bilaterally Reflux 2 seconds. Extremity full range of motion below the left elbow.) Neurological exam: Present: alert, oriented X3, CN II-XII intact Course Vital Signs 11/02/18 08:35 Temperature 97.6 F Pulse Rate 101 H Respiratory 18 Rate Blood Pressure 114/79 O2 Sat by Pulse 98 Oximetry Medical Decision Making - Medical Decision Making 78-year-old female presented for left shoulder pain. This is related to use arcy-mah-mpkslwd cane. Patient has left shoulder bursitis. Patient's x-ray shows degenerative changes. Patient will be discharged with pain medication follow-up with her orthopedic physician. Return parameters were discussed. Disposition Clinical Impression: Bursitis of left shoulder, Left shoulder pain Disposition: HOME SELF-CARE Condition: Stable Instructions (If sedation given, give patient instructions): Osteoarthritis (ED), Shoulder Pain (ED) Additional Instructions: Please return to the Emergency Department if symptoms worsen or any other concerns. Prescriptions: HYDROcodone/APAP 7.5-325MG [[place] 7.5-325] 1 tab PO Q6HR PRN 3 Days #12 tab PRN Reason: Pain predniSONE 50 mg PO DAILY #4 tab Is patient prescribed a controlled substance at d/c from ED?: Yes When asked, does pt state using other controlled substances?: No If prescribed controlled substance>3 days was MAPS reviewed?: Prescribed <3 Days If opioid is for acute pain is fill amount 7 days or less?: Yes If Rx opioid, was Start Talking consent form obtained?: Yes Referrals: Shanice Salvador DO [Primary Care Provider] - 1-2 days Anderson Do DO [Doctor of Osteopathic Medicine] - 1-2 days Time of Disposition: 10:18
--- NOTE | 2018-11-02 10:06 | XR ---
EXAMINATION TYPE: XR shoulder complete LT , 4 VIEWS DATE OF EXAM ORDERED: 11/02/2018 HISTORY: Pain. COMPARISON: None. FINDINGS: There is mild subluxation of the glenohumeral joint. No fracture, dislocation or other acu te osseous lesion is seen. There are hypertrophic changes in the left AC joint. IMPRESSION: DEGENERATIVE CHANGE WITHOUT AN ACUTE OSSEOUS LESION.
[2018-11-02] MEDS ORDERED: HYDROcodone/APAP 7.5-325MG 1 EACH TAB PO ONE (10:15)
[2018-11-02 10:40] VITALS: BP 122/85; PULSE 106; TEMP 97.7
== END 2018-11-02 10:38 | disposition home or self-care (01) ==
LOC: EC 08:33
DX: M75.52 Bursitis of left shoulder (principal); M19.012 Primary osteoarthritis, left shoulder; E78.5 Hyperlipidemia, unspecified; I10 Essential (primary) hypertension; I34.1 Nonrheumatic mitral (valve) prolapse; Z87.81 Personal history of (healed) traumatic fracture; Z95.2 Presence of prosthetic heart valve; Z87.891 Personal history of nicotine dependence; Z79.01 Long term (current) use of anticoagulants; Z79.899 Other long term (current) drug therapy
CPT/HCPCS: 73030; 99283; 96372 ×2; J2270; J1100

== ENCOUNTER 2021-11-03 00:48 | Emergency (ER) | payer MEDICARE, BC ==
--- NOTE | 2021-11-03 03:00 | CT ---
EXAMINATION TYPE: CT brain wilfredo wo con DATE OF EXAM: 11/03/2021 COMPARISON: None HISTORY: posterior head injury from fall CT DLP: 1388.3 mGycm Automated exposure control for dose reduction was used. Images of the brain and cervical spine obtained without contrast. There is cerebral cortical atrophy. There is no mass effect or midline shift. There is no sign of int racranial hemorrhage. The calvarium is intact. Skull base is intact. There is normal aeration of the mastoid sinuses. Cervical vertebra have normal alignment. There is some degenerative disc space narrowing at C5-6 with spurring of the endplates. Posterior elements are intact. There is no compression fracture. There is multilevel mild cervical hypertrophic facet arthropathy. Prevertebral soft tissues are intact. IMPRESSION: Mild atrophy. No acute intracranial abnormality. Mild spondylotic changes in the cervical spine. No fracture.
--- NOTE | 2021-11-03 04:44 | ED ---
Fall HPI - General Chief Complaint: Fall Stated Complaint: Fall, head laceration Time Seen by Provider: 11/03/21 04:44 Source: family, RN notes reviewed, old records reviewed, Caregiver Mode of arrival: wheelchair Limitations: no limitations - History of Present Illness Initial Comments: This is an 81-year-old female to the emergency department for evaluation with mechanical trip and fall. Fell backwards hitting her head. She denies loss of consciousness but is a mildly poor historian. Patient is on blood thinners. Does have laceration to her scalp. Patient has no other injuries noted. 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: yes, by family Place Fall Occurred: home Loss of Consciousness: none Prolonged Down Time?: no Symptoms Prior to Fall: none Location: head Severity: moderate Severity scale (1-10): 6 Quality: sharp Context: tripped/slipped Associated Symptoms: denies - Related Data Home Medications Medication Instructions Recorded Confirmed Apixaban [Eliquis] 5 mg PO BID 08/21/18 11/02/18 Bumetanide [BUMEX] 2 mg PO BID 08/21/18 11/02/18 Losartan Potassium 100 mg PO DAILY 08/21/18 11/02/18 Pantoprazole Sodium [Protonix] 40 mg PO DAILY 08/21/18 11/02/18 Rosuvastatin [Crestor] 20 mg PO HS 08/21/18 11/02/18 metOLazone [Zaroxolyn] 2.5 mg PO DAILY 08/21/18 11/02/18 traMADol HCL [Ultram] 50 mg PO Q6HR PRN 09/04/18 11/02/18 Previous Rx's Medication Instructions Recorded HYDROcodone/APAP 7.5-325MG [[place] 1 tab PO Q6HR PRN 3 Days #12 tab 11/02/18 7.5-325] predniSONE 50 mg PO DAILY #4 tab 11/02/18 Allergies Allergy/AdvReac Type Severity Reaction Status Date / Time No Known Allergies Allergy Verified 11/03/21 00:58 Review of Systems ROS Statement: Those systems with pertinent positive or pertinent negative responses have been documented in the HPI. ROS Other: All systems not noted in ROS Statement are negative. Past Medical History Past Medical History: Hyperlipidemia, Hypertension, Mitral Valve Prolapse (MVP) Additional Past Medical History / Comment(s): tricuspid valve History of Any Multi-Drug Resistant Organisms: None Reported Past Surgical History: Cholecystectomy, Tubal Ligation Additional Past Surgical History / Comment(s): aortic valve replacement Past Anesthesia/Blood Transfusion Reactions: No Reported Reaction Past Psychological History: No Psychological Hx Reported Smoking Status: Former smoker Past Alcohol Use History: Occasional Past Drug Use History: None Reported General Exam General appearance: alert, in no apparent distress Head exam: Present: normocephalic, normal inspection. Absent: atraumatic (Occipital scalp laceration) Eye exam: Present: normal appearance, PERRL, EOMI. Absent: scleral icterus, conjunctival injection, periorbital swelling ENT exam: Present: normal exam, mucous membranes moist Neck exam: Present: normal inspection. Absent: tenderness, meningismus, lymphadenopathy Respiratory exam: Present: normal lung sounds bilaterally. Absent: respiratory distress, wheezes, rales, rhonchi, stridor Cardiovascular Exam: Present: regular rate, normal rhythm, normal heart sounds. Absent: systolic murmur, diastolic murmur, rubs, gallop, clicks GI/Abdominal exam: Present: soft, normal bowel sounds. Absent: distended, tenderness, guarding, rebound, rigid Extremities exam: Present: normal inspection, full ROM, normal capillary refill. Absent: tenderness, pedal edema, joint swelling, calf tenderness Back exam: Present: normal inspection Neurological exam: Present: alert, oriented X3, CN II-XII intact Psychiatric exam: Present: normal affect, normal mood Skin exam: Present: warm, dry, intact, normal color. Absent: rash Course Vital Signs 11/03/21 11/03/21 00:53 05:55 Temperature 97.0 F L 98 F Pulse Rate 74 87 Respiratory 16 20 Rate Blood Pressure 130/82 137/87 O2 Sat by Pulse 98 97 Oximetry - Reevaluation(s) Reevaluation #1: 11/03/21 Medical record is reviewed Patient symptoms are improving here in the emergency department Patient is informed of results and questions have been answered Procedures - Laceration Laceration #1 Consent Obtained: verbal consent Indication: laceration Site: scalp Size (cm): 6 Description: linear Size of Sutures: other ([place]) Technique: simple, interrupted Complications: pain Medical Decision Making - Medical Decision Making 81 female trip and fall on blood thinners did hit her head scalp laceration which is repaired with marilyn here in the ER. CT brain C-spine negative for acute disease and patient can be discharged home - Radiology Data Radiology results: report reviewed (CT brain C-spine is negative for acute disease), image reviewed Disposition Clinical Impression: Fall, Head injury, Occipital scalp laceration Disposition: HOME SELF-CARE Condition: Good Instructions (If sedation given, give patient instructions): Fall Prevention for Older Adults (ED), Staple Care (ED) Is patient prescribed a controlled substance at d/c from ED?: No Referrals: Sahnice Salvador DO [Primary Care Provider] - 1-2 days
[2021-11-03 05:56] VITALS: BP 137/87; PULSE 87; RESP 20; TEMP 98
== END 2021-11-03 05:56 | disposition home or self-care (01) ==
LOC: EC 00:48
DX: S01.01XA Laceration without foreign body of scalp, initial encounter (principal); I10 Essential (primary) hypertension; E78.5 Hyperlipidemia, unspecified; Z87.891 Personal history of nicotine dependence; Z79.01 Long term (current) use of anticoagulants; Z79.52 Long term (current) use of systemic steroids; Z79.899 Other long term (current) drug therapy; W01.0XXA Fall on same level from slipping, tripping and stumbling without subsequent striking against object, initial encounter; Y92.009 Unspecified place in unspecified non-institutional (private) residence as the place of occurrence of the external cause
CPT/HCPCS: 12002; 70450; 72125; 99284

== ENCOUNTER → 2021-11-16 | Outpatient (CLI) | payer MEDICARE, BC ==
--- NOTE | 2021-11-16 16:07 | CONS ---
CONSULTATION DATE OF SERVICE: 11/16/2021 This 81-year-old lady has been evaluated in [facility] for multiple awakenings from sleep, possible obstructive sleep apnea-hypopnea syndrome. HISTORY OF PRESENT ILLNESS/SLEEP-WAKE EVALUATION: The patient goes to bed at different times and gets up in the morning around 9 or 10 a.m. Sometimes she has problems with falling asleep. She reads in the bedroom. She usually sleeps on the side position. She wakes up from sleep 4 times with episodes of nocturia. No history of abnormal movements during sleep. She denied any significant history of snoring. No history of hypnagogic hallucinations, sleep paralysis or cataplexy. In the morning the patient wakes up tired, worries about her sleep. [place] Sleepiness Scale is significantly increased at 11. She takes one nap around 1 p.m. PAST MEDICAL HISTORY: Positive for hypertension, hyperlipidemia, arthritis, Sjogren's syndrome, atrial fibrillation, COPD. PAST SURGICAL HISTORY: Aortic valve replacement, hip replacement, cholecystectomy. MEDICATIONS: Albuterol, apixaban, Breo, Farxiga, hydrochloroquine, zaroxolyn, metoprolol, pilocarpine, rosuvastatin, spironolactone, torsemide, vitamin D3. SOCIAL HISTORY: Negative for smoking at the present time. Alcohol consumption occasional. FAMILY HISTORY: Sleep apnea, diabetes, restless legs. REVIEW OF SYSTEMS: Multiple awakenings from sleep, episodes of shortness of breath. No fevers. No double vision. No recent chest pain. No shortness of breath. No abdominal pain. No bleeding episodes. No blood in the urine. No seizure episodes. PHYSICAL EXAMINATION: GENERAL APPEARANCE: Pleasant lady without distress. VITAL SIGNS: BP 115/69, HR 82, RR 16, weight 173.8, height 5 feet 3 inches, body mass index 30.8, temperature 97.3, oxygen saturation at room air 97%. HEENT: PERRLA, EOMI, evaluation of oropharynx showed tongue protrudes midline. Low position of soft palate; Mallampati III. NECK: Supple, no JVD. Thyroid is not palpable. LUNGS: Clear to percussion and to auscultation. Good air exchange. No wheezing or rhonchi. HEART: Irregular heart beat. ABDOMEN: Soft and nontender. Bowel sounds are present. No organomegaly appreciated. EXTREMITIES: No clubbing or cyanosis. 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 Cranial nerves 2 to 7 intact. There is no fasciculation or atrophy. noted. No focal deficits observed. IMPRESSION: 1. Multiple awakenings from sleep with nocturia, low position of soft palate, Mallampati III, borderline size of neck, 15-1/2 inches; possible obstructive sleep apnea-hypopnea syndrome. 2. Chronic obstructive pulmonary disease. 3. Hypertension. 4. Mild obesity; BMI 30.8. 5. Sjogren's syndrome. 6. Status post aortic valve replacement. 7. History of atrial fibrillation. 8. Status post cholecystectomy. 9. Status post hip replacement. 10.History of congestive heart failure. 11.History of coronary artery disease. PLAN: 1. Polysomnogram for evaluation of patient's breathing during sleep. 2. CPAP/BiPAP titration if sleep study confirms obstructive sleep apnea-hypopnea syndrome. 3. Preferable position during sleep on the side. 4. No driving if patient feels any sleepiness. 5. I will see patient for follow up visit to explain results of testing and following plan. Thank you very much for referring this patient for consultation. Sincerely, Raffaele Linda MD, PhD, FAASM Diplomat of [employer] Sleep Medicine Board of [employer] Radio Survey Worker of [facility] [place] MMODL / MAUDEN: [id number] /
== END ==
LOC: SLEEP 13:47
PROVIDERS: ATTEND Internal Medicine
DX: G47.8 Other sleep disorders (principal); R35.1 Nocturia; J44.9 Chronic obstructive pulmonary disease, unspecified; E66.9 Obesity, unspecified; E78.5 Hyperlipidemia, unspecified; I11.0 Hypertensive heart disease with heart failure; I25.10 Atherosclerotic heart disease of native coronary artery without angina pectoris; I48.91 Unspecified atrial fibrillation; I50.9 Heart failure, unspecified; M35.00 Sjogren syndrome, unspecified; Z68.30 Body mass index [BMI] 30.0-30.9, adult; Z95.2 Presence of prosthetic heart valve; Z90.49 Acquired absence of other specified parts of digestive tract; Z96.649 Presence of unspecified artificial hip joint; M19.90 Unspecified osteoarthritis, unspecified site; Z79.51 Long term (current) use of inhaled steroids; Z87.891 Personal history of nicotine dependence
CPT/HCPCS: 99211